=== PATIENT | female | born 1940 | race Caucasian/White ===

== ENCOUNTER 2016-09-18 06:12 | Outpatient (CLI) | payer MEDICARE, BC ==
[~2016-09-18 06:12] MED LIST: ASPIRIN81 MG ORAL; CHLORTHALIDONE25 MG; CRESTOR10 M1 ORAL; IBUPROFEN600 MG ORAL; KLONOPIN1 MG ORAL; LOSARTAN POTASS25 MG ORAL; METFORMIN HCL500 M1 ORAL; PAXIL10 MG/5 ML PO; PERCOCET 5-3251 EACH ORAL; PRECOSE50 MG ORAL; TOBRAMYCIN-DEXAM5 M1 RIGHT EYE; UNOBMED; VITAMIN D250000 UNI1 ORAL; ZOFRAN ODT4 MG ORAL
[2016-09-18 07:38] LABS: BASOPHILS % (AUTO) 0.9 % (0.0-2.0); EOSINOPHILS % (AUTO) 3.8 % (0.0-3.0); MEAN CORPUSCULAR HEMOGLOBIN 29.1 PG (27.0-31.0); MEAN CORPUSCULAR HGB CONC 32.1 G/DL (32.0-36.0); MEAN CORPUSCULAR VOLUME 90 FL (80-99); MEAN PLATELET VOLUME 7.7 FL (6.5-10.1); MONOCYTES % (AUTO) 6.4 % (1.0-10.0); PLATELET COUNT 180 K/UL (150-450); RED CELL DISTRIBUTION WIDTH 13.1 % (11.6-14.8); WHITE BLOOD COUNT 8.1 K/UL (4.8-10.8)
[2016-09-18 07:50] LABS: ALANINE AMINOTRANSFERASE 17 U/L (3-33); ALBUMIN/GLOBULIN RATIO 1.4 (1.0-2.7); ANION GAP 11 (5-15); ASPARTATE AMINO TRANSFERASE 16 U/L (5-40); CALCIUM 9.9 mg/dL (8.6-10.2); CARBON DIOXIDE 29 mEQ/L (20-30); CHLORIDE 99 mEQ/L (98-107); CHOLESTEROL 122 mg/dL (< 200); CHOLESTEROL/HDL RATIO 2.8 (3.3-4.4); CRP QUANT 0.4 mg/dL (< 0.5); HEMOLYSIS 6; LDL CHOLESTEROL (CALC.) 53 mg/dL (60-99); POTASSIUM 4.4 mEQ/L (3.4-4.9); SODIUM 139 mEQ/L (135-145); URIC ACID 5.7 mg/dL (3.0-7.5)
[2016-09-18 08:00] LABS: APPEARANCE,URINE SLIGHTLY CLOUDY; KETONES,URINE NEGATIVE (NEGATIVE); LEUKOCYTE ESTERASE ,URINE 2+ (NEGATIVE); NITRITE,URINE POSITIVE (NEGATIVE); PH,URINE 5 (4.5-8.0); PROTEIN,URINE 2+ (NEGATIVE); UROBILINOGEN,URINE 1 MG/DL (0.0-1.0)
[2016-09-18 08:47] LABS: BACTERIA,URINE MODERATE /HPF; SQUAMOUS EPITHELIAL CELL,UR FEW /LPF (NONE/OCC)
[2016-09-18 08:48] LABS: HEMOGLOBIN A1C 5.9 % (< 6.0)
[2016-09-18 09:44] LABS: ERYTHROCYTE SEDIMENTATION RATE 44 MM/HR (0-30)
== END 2016-09-18 07:42 | disposition home or self-care (01) ==
LOC: LAB 06:12
DX: R03.0 Elevated blood-pressure reading, without diagnosis of hypertension (principal); E34.9 Endocrine disorder, unspecified
CPT/HCPCS: 36415; 80053; 80061; 81001; 82306; 83036; 84436; 84443; 84550; 85025; 85651; 86140; 87086; 87181

== ENCOUNTER 2017-09-15 21:19 | Inpatient (IN) | payer MEDICARE, BC ==
[~2017-09-15] VITALS: Ht 177.8 cm; Wt 108.9 kg
[2017-09-15] MEDS ORDERED: Isovue-300 100ml vial INJ PRN (22:00)
[2017-09-15] MEDS ORDERED: Morphine Sulfate 4mg/ml Inj IVP ONE (22:15)
[2017-09-15 22:28] LABS: HEMATOCRIT 44.9 % (37.0-47.0); HEMOGLOBIN 15.4 G/DL (12.0-16.0); MEAN CORPUSCULAR VOLUME 87 FL (80-99); PLATELET COUNT 198 K/UL (150-450); RED BLOOD COUNT 5.17 M/UL (4.20-5.40); RED CELL DISTRIBUTION WIDTH 12.2 % (11.6-14.8); WHITE BLOOD COUNT 16.9 K/UL (4.8-10.8)
[2017-09-15 22:34] LABS: ANION GAP 12 mmol/L (5-15); BLOOD UREA NITROGEN 19 mg/dL (7-18); CALCIUM 9.8 MG/DL (8.5-10.1); CARBON DIOXIDE 25 MMOL/L (21-32); CHLORIDE 102 MMOL/L (98-107); CREATININE 1.4 MG/DL (0.55-1.30); SODIUM 139 MMOL/L (136-145)
[2017-09-15 22:38] LABS: ALANINE AMINOTRANSFERASE 39 U/L (12-78); ALBUMIN/GLOBULIN RATIO 0.9 (1.0-2.7); ALKALINE PHOSPHATASE 78 U/L (46-116); ASPARTATE AMINO TRANSFERASE 21 U/L (15-37); BILIRUBIN,TOTAL 0.7 MG/DL (0.2-1.0)
[2017-09-15 23:54] LABS: BILIRUBIN, URINE NEGATIVE (NEGATIVE); COLOR,URINE PALE YELLOW; GLUCOSE, URINE (UA) 3+ (NEGATIVE); KETONES,URINE 1+ (NEGATIVE); LEUKOCYTE ESTERASE ,URINE 1+ (NEGATIVE); NITRITE,URINE NEGATIVE (NEGATIVE); PH,URINE 6.5 (4.5-8.0); PROTEIN,URINE 4+ (NEGATIVE); UROBILINOGEN,URINE NORMAL MG/DL (0.0-1.0)
[2017-09-16 00:09] LABS: APPEARANCE,URINE SLIGHTLY CLOUDY
[2017-09-16] MEDS ORDERED: cefTRIAXone 1 GM in NS 55 ML IVPB SCH (00:45)
--- NOTE | 2017-09-16 00:45 | Emergency Room Report ---
History of Present Illness General Chief Complaint: Abdominal Pain Source: Patient Present Illness HPI 71 yo female presents with abdominal pain and vomiting multiple episodes She has history of hypertension, prediabetes, hyperlipidemia, and a cholecystectomy She reports painting on for a couple of days, she denies any changes in bowel habits or fevers She does report the pain radiates to her left back Allergies: Coded Allergies: No Known Allergies (Unverified , 07/16/14) Patient History Past Medical History: see triage record Last Menstrual Period: NA Now: No Reviewed Nursing Documentation: PMH: Agreed; PSxH: Agreed Nursing Documentation-PMH Hx Cardiac Problems: Yes Hx Hypertension: Yes Hx Diabetes: Yes Hx Cancer: Yes Hx Gastrointestinal Problems: No - gallblader removed Hx Neurological Problems: No Review of Systems All Other Systems: negative except mentioned in HPI Physical Exam Vital Signs Date Time Temp Pulse Resp B/P (MAP) Pulse Ox O2 Delivery O2 Flow Rate FiO2 09/15/17 21:26 98.1 103 18 175/81 98 Room Air 98.1 Sp02 EP Interpretation: reviewed, normal General Appearance: alert, non-toxic, mild distress Head: normocephalic Eyes: bilateral eye normal inspection, bilateral eye PERRL, bilateral eye EOMI ENT: normal ENT inspection, hearing grossly normal, normal pharynx, no angioedema, normal voice, moist mucus membranes Neck: normal inspection, full range of motion, supple, supple/symm/no masses Respiratory: chest non-tender, lungs clear, normal breath sounds, chest symmetrical, palpation of chest normal Cardiovascular #1: normal peripheral pulses, regular rate, rhythm Cardiovascular #2: 2+ radial (R), 2+ radial (L) Gastrointestinal: normal inspection, non tender, soft, no mass, no guarding, no rebound Rectal: deferred Genitourinary: normal inspection, no CVA tenderness Musculoskeletal: back normal, gait/station normal, normal range of motion, non- tender, no calf tenderness Neurologic: alert, responsive, visiting teacher III-XII nml as tested, motor strength/tone normal, sensory intact, speech normal Psychiatric: judgement/insight normal, memory normal, mood/affect normal, no suicidal/homicidal ideation Skin: normal color, no rash, warm/dry, normal turgor Lymphatic: no adenopathy Medical Decision Making Diagnostic Impression: Primary Impression: Kidney stone on left side ER Course Patient admitted for kidney stone, given antibiotics Urine with only 2-4 white blood cells, however patient very symptomatic with nausea and pain, as well as vomiting, will admit for pain control and nausea control EKG Diagnostic Results EKG Time: 00:41 EP Interpretation: no st-t changes or twi Rate: normal Rhythm: NSR ST Segments: no acute changes Rhythm Strip Diag. Results Rhythm Strip Time: 00:37 EP Interpretation: yes Rate: 85 Rhythm: NSR, no PVC's, no ectopy CT/MRI/US Diagnostic Results CT/MRI/US Diagnostic Results : Imaging Test Ordered: ct abd/pelvis Impression L mid ureteral stone, +hydronephrosis and hydroureter Last Vital Signs Date Time Temp Pulse Resp B/P (MAP) Pulse Ox O2 Delivery O2 Flow Rate FiO2 09/15/17 22:22 98.1 09/15/17 21:26 103 18 175/81 98 Room Air Disposition: ADMITTED INPATIENT Condition: Stable Referrals: Barron Lyle MD (PCP) LACIE FORREST M.D September 16, 2017 00:45
[2017-09-16 01:00] VITALS: BP 148/92
[2017-09-16 03:49] VITALS: BP 143/89
[2017-09-16] MEDS ORDERED: Morphine Sulfate 4mg/ml Inj IVP PRN (05:15)
[2017-09-16] MEDS: D5 1/2NS 1,000 ML IV SCH ×3 (05:46→16:19)
[2017-09-16 08:38] LABS: APPEARANCE,URINE TURBID; BILIRUBIN, URINE NEGATIVE (NEGATIVE); COLOR,URINE PALE YELLOW; GLUCOSE, URINE (UA) 2+ (NEGATIVE); KETONES,URINE NEGATIVE (NEGATIVE); LEUKOCYTE ESTERASE ,URINE 1+ (NEGATIVE); NITRITE,URINE NEGATIVE (NEGATIVE); PH,URINE 6 (4.5-8.0); PROTEIN,URINE 4+ (NEGATIVE); UROBILINOGEN,URINE NORMAL MG/DL (0.0-1.0)
[2017-09-16 09:00] VITALS: BP 160/90
[2017-09-16] MEDS: Pantoprazole Inj IVP SCH (09:50)
[2017-09-16] MEDS ORDERED: Losartan 50mg tab ORAL SCH (10:45)
[2017-09-16] MEDS: Aspirin Baby 81mg ORAL SCH (10:59)
[2017-09-16] MEDS: Heparin 5000 units/ml inj SUBQ SCH ×2 (11:11→21:00)
[2017-09-16 11:44] LABS: BASOPHILS % (AUTO) 0.7 % (0.0-2.0); EOSINOPHILS % (AUTO) 0.1 % (0.0-3.0); HEMATOCRIT 45.9 % (37.0-47.0); HEMOGLOBIN 15.2 G/DL (12.0-16.0); LYMPHOCYTES % (AUTO) 7.5 % (20.0-45.0); MEAN CORPUSCULAR VOLUME 88 FL (80-99); MONOCYTES % (AUTO) 7.2 % (1.0-10.0); NEUTROPHILS % (AUTO) 84.6 % (45.0-75.0); PLATELET COUNT 210 K/UL (150-450); RED BLOOD COUNT 5.21 M/UL (4.20-5.40); RED CELL DISTRIBUTION WIDTH 12.1 % (11.6-14.8); WHITE BLOOD COUNT 16.9 K/UL (4.8-10.8)
[2017-09-16 11:53] LABS: ANION GAP 8 mmol/L (5-15); BLOOD UREA NITROGEN 19 mg/dL (7-18); CALCIUM 9.5 MG/DL (8.5-10.1); CARBON DIOXIDE 29 MMOL/L (21-32); CHLORIDE 102 MMOL/L (98-107); CREATININE 1.6 MG/DL (0.55-1.30); POTASSIUM 4.3 MMOL/L (3.5-5.1); SODIUM 139 MMOL/L (136-145)
[2017-09-16 12:00] VITALS: BP 161/95
--- NOTE | 2017-09-16 12:27 | Diagnostic Imaging Report ---
Indication: Abdominal pain, nausea Technique: Spiral acquisitions obtained through the abdomen and pelvis. No oral contrast utilized, per emergency room physician request No IV contrast utilized, per emergency room physician request.. Multiplanar reconstructions were generated. Total dose length product 969.76 mGycm. CTDIvol(s) 19.07 mGy. Dose reduction achieved using automated exposure control Comparison: 05/23/2014 Findings: There is a 4 mm calculus within the proximal left ureter. There is mild left hydronephrosis, and extensive perinephric fat stranding and fluid. No intrarenal calculi are demonstrated. There is questionably a nonobstructive calyceal calculus. Previously demonstrated left renal cysts are less well-visualized on the current study, and evaluation is limited by the absence of IV contrast. There is a 13 mm exophytic lesion coming off of the lower pole of the right kidney which was evident previously but demonstrates nonspecific soft tissue attenuation. It is equivocally slightly increased in size from the prior study. Lack of IV contrast limits assessment of the other solid organs. The liver demonstrates some capsular calcifications. There is evidence of interim cholecystectomy. The extra hepatic bile ducts are dilated, common hepatic duct measuring up to 19 mm, without evidence of downstream obstructive lesion. The pancreas, spleen, adrenals are unremarkable. No retroperitoneal or mesenteric mass or adenopathy. No pelvic mass or adenopathy. The uterus is absent, presumably postsurgically. There is colonic diverticulosis. No evidence of diverticulitis. The appendix is normal. No small bowel distention. There is a tiny fat-containing umbilical hernia again demonstrated. There is minimal atelectasis or scarring at the left lung base. The bones are unremarkable. Impression: Positive for 4 mm proximal left ureteral calculus. Resultant left hydronephrosis and extensive perinephric fat stranding and fluid Possible small nonobstructive left renal calyceal calculus Right renal lesion demonstrates nonspecific soft tissue attenuation. However, MRI of 2014 indicated that this is a cyst. Interim cholecystectomy. Dilated extra hepatic bile ducts without evidence of downstream obstructive lesion. Most likely on basis of age and postcholecystectomy state. Correlation with liver function tests is recommended Colonic diverticulosis. No evidence of diverticulitis Other findings as noted, including evidence of prior hysterectomy, fat-containing umbilical hernia, left basilar scarring and/or atelectasis This agrees with the preliminary interpretation provided overnight by [facility] teleradiology service, with additional nonsignificant findings as described above. The CT scanner at [facility] is accredited by the [employer] and the scans are performed using protocols designed to limit radiation exposure to as low as reasonably achievable to attain images of sufficient resolution adequate for diagnostic evaluation.
[2017-09-16] MEDS: metFORMIN 500mg tab ORAL SCH ×2 (13:17→17:02)
[2017-09-16] MEDS: Precose 50mg tab ORAL SCH ×2 (13:17→17:02)
[2017-09-16 16:00] VITALS: BP 154/74
--- NOTE | 2017-09-16 17:29 | Diagnostic Imaging Report ---
Indication: Vomiting, abnormal lipase, history of prior cholecystectomy Technique: Vasquez-scale and duplex images of the upper abdomen were obtained Comparison: 07/16/2014. Also CT scan 09/15/2017 Findings: Gallbladder has been removed since the prior study Common bile duct measures 18 mm in diameter. No intrahepatic biliary ductal dilatation. Liver demonstrates diffusely increased echogenicity, consistent with diffuse hepatocellular disease, most likely fatty change. Portal vein and hepatic veins are patent. Pancreas is unremarkable. Spleen is unremarkable. Left kidney measures 12.9 cm in length. Right kidney measures 12.1 cm length. Both kidneys demonstrate normal echogenicity. There is imxe-so-emztdogm left hydronephrosis. Proximal right ureteral calculus described on recent CT is not demonstrated. There are small bilateral renal cysts. Bladder demonstrates 534 mm prevoid volume, 266 mL postvoid volume. Non-aneurysmal abdominal aorta . Impression: Mild to moderate left hydronephrosis, concordant with findings reported on recent CT scan and due to sonographically occult proximal ureteral calculus Interim cholecystectomy. Extrahepatic biliary ductal dilatation, also described on recent CT scan. Most likely related to age and postcholecystectomy state, but occult downstream obstruction also possible Liver demonstrates diffusely increased echogenicity, consistent with diffuse hepatocellular disease, consistent with fatty change demonstrated on recent CT. Distended bladder both prevoid and postvoid Incidental finding small bilateral renal cysts
[2017-09-16] MEDS: HYDROmorphone 4mg tab ORAL PRN (18:42)
[2017-09-16 20:00] VITALS: BP 140/86
[2017-09-16] MEDS ORDERED: cefTRIAXone 1 GM in D5W 55 ML IVPB SCH (21:00)
--- NOTE | 2017-09-17 01:00 | History and Physical Report ---
DATE OF ADMISSION: 09/16/2017 REASON FOR ADMISSION: This is one of several admissions to [facility] of this 77-year-old patient because of nephrolithiasis. HISTORY OF PRESENT ILLNESS: The patient in a stable condition and residing in her home where she developed a sudden onset of severe left flank pain radiating to groin and into her vagina and the pain became intolerable. She came to [facility] ER where assessment revealed the patient to have a kidney stone. She underwent imaging studies of the abdomen and pelvis as well as blood and urine tests and was admitted. PAST MEDICAL HISTORY AND SURGERY: The patient underwent hysterectomy many years ago and cholecystectomy a few years ago in this hospital. Medically, she is known to have high blood pressure for the last 20 years and diabetes mellitus for the last 15 years. She has gastroesophageal reflux disease. She has hyperlipidemia and hypervitaminosis D. MEDICATIONS: The patient is on losartan 100 mg daily, she is on metformin 500 mg t.i.d., she is on pantoprazole 40 mg daily, she is on cholecalciferol 5000 units daily, and rosuvastatin 10 mg daily. ALLERGIES: No known drug allergies. FAMILY HISTORY: No medical history of kidney stones in the family. Her father at the age of 79 from an acute [place] and mother at age of 79 from metastatic disease of CA of the colon. She has one sister in good health. Her mother of CA of the pancreas. SOCIAL HISTORY: She is single. She was born in [place]. She . She has no children. HABITS: The patient does not smoke, drink, or use illicit drugs. REVIEW OF SYSTEMS: CARDIOVASCULAR: The patient denied any chest pain, shortness of breath, palpitations, or dizziness. PULMONARY: The patient denied any cough, wheezing, or expectoration. GASTROINTESTINAL: Her appetite is moderate. Her weight is stable. She has no dysphagia or dyspepsia. No bowel movement disorder. GENITOURINARY: The patient denies any dysuria, frequency, incontinence, or nocturia. Current episode of kidney stone. JOINTS: The patient denies any pain, swelling, stiffness, cold extremities, photosensitivity, dry eyes, or alopecia. CENTRAL NERVOUS SYSTEM: Her sleep is of good quality. She has no numbness, tingling, seizure disorder, and has no headache. PHYSICAL EXAMINATION: VITAL SIGNS: Blood pressure is 154/74, pulse 106, respirations were 18, temperature 98.2 degrees. HEENT: Eyes were normal. Pupils were round, equal, and reacting to light. Sclerae was white. Conjunctiva was pink. Extraocular movements were normal. Temporal arteries were palpable bilaterally. There was no bilateral temporal wasting. Visual chowdhury to confrontation were normal and neglect sign was negative. ENT, mucous membranes were not dehydrated. Auditory canals were clear and tympanic membranes could not be visualized. Nasal cavity was not congested. Nasal septum was intact. Soft palate was free of ulceration. Pharynx was clear from exudate or tonsillar hypertrophy. Uvula ghassan to phonation. Tongue was moist, midline, and normally papillated. NECK: Supple. There was no goiter. No mass. No lymphadenopathy. There was no JVD. No bruits. Carotid upstroke was 2+. LUNGS: Clear. HEART: PMI was in the fifth left intercostal space in midclavicular line. There was normal S1 and normal S2. There was no murmur. No arrhythmia. No S3. No S4. No pericardial rub. ABDOMEN: Soft, obese, nontender without organomegaly. There were no masses palpable. Normal bowel sounds without bruits. There was no goiter. No rebound tenderness. No ascites. No hernia. There was left CVA tenderness. Liver span was 8 cm, mostly nontender. EXTREMITIES: No cyanosis, no clubbing, and no edema. Extremities were warm. NEUROLOGICAL: Reflexes in biceps, triceps, and brachioradialis were present. Patellar retinaculum was present. Plantar were in flexion. Cranial nerves from II through XII were symmetric and equal. Cerebellar function, gait, [id number] rapid alternating movements, and Romberg sign was not performed by the patient. There was no tremor. No nystagmus. No extrapyramidal rigidity. Sensory exam to pinprick, cotton touch, and position are grossly normal. Motor strength was 5/5 against resistance in upper and lower extremities in proximal and distal muscles. LABORATORY AND DIAGNOSTIC DATA: Hemoglobin is 15.2, hematocrit 45.9 with MCV of 88, WBC of 16.9, and platelets is 210. Her BUN and creatinine is 19 and 1.6 respectively. Her sodium is 139, potassium 4.3, chloride 102, CO2 was 29, and glucose is 184. Her calcium was 9.5. Her troponin was not detected. Her lipase was 186 and urinalysis show urine protein was 4+, urine glucose was 2+, urine ketone was negative, urine blood was 5+, urine nitrate, bilirubin and urobilinogen were normal, wbc's 5 to 10, rbc's too numerous to count. CT scan of the abdomen and pelvis without contrast reveal a 4 mm calculus in the proximal left ureter associated with left hydronephrosis with extensive perinephric fat stranding noted. Other finding was normal ileum status post cholecystectomy, status post hysterectomy, normal common bile duct, colonic diverticulosis, possible small nonobstructive left renal calyceal calculus. In addition, there is an umbilical hernia besides this contained fat and left basilar atelectasis. PLAN: The current study was done without contrast. Repeat CT scan of the abdomen and pelvis with IV contrast will be requested. Urology consult will be called to assist in the management of this case. CBC and BMP will be requested as well. Barron Lyle M.D. DR: PAULIE JOB#: [id number] CC:
[2017-09-17] MEDS: HYDROmorphone 4mg tab ORAL PRN ×2 (02:17→09:00)
[2017-09-17 04:00] VITALS: BP 164/96
[2017-09-17] MEDS: D5 1/2NS 1,000 ML IV SCH (05:50)
[2017-09-17 08:00] VITALS: BP 147/87
[2017-09-17 08:11] LABS: BASOPHILS % (AUTO) 0.6 % (0.0-2.0); EOSINOPHILS % (AUTO) 0.3 % (0.0-3.0); HEMATOCRIT 44.7 % (37.0-47.0); LYMPHOCYTES % (AUTO) 10.4 % (20.0-45.0); MEAN CORPUSCULAR VOLUME 89 FL (80-99); MONOCYTES % (AUTO) 7.9 % (1.0-10.0); NEUTROPHILS % (AUTO) 80.9 % (45.0-75.0); PLATELET COUNT 185 K/UL (150-450); RED BLOOD COUNT 5.05 M/UL (4.20-5.40); RED CELL DISTRIBUTION WIDTH 12.2 % (11.6-14.8); WHITE BLOOD COUNT 15.6 K/UL (4.8-10.8)
[2017-09-17 08:32] LABS: ANION GAP 9 mmol/L (5-15); BLOOD UREA NITROGEN 18 mg/dL (7-18); CALCIUM 9.3 MG/DL (8.5-10.1); CARBON DIOXIDE 28 MMOL/L (21-32); CHLORIDE 100 MMOL/L (98-107); CREATININE 1.8 MG/DL (0.55-1.30); SODIUM 137 MMOL/L (136-145)
[2017-09-17] MEDS: Pantoprazole Inj IVP SCH (08:33)
[2017-09-17] MEDS: Aspirin Baby 81mg ORAL SCH (08:33)
[2017-09-17] MEDS: Precose 50mg tab ORAL SCH ×3 (08:34→17:24)
[2017-09-17] MEDS: metFORMIN 500mg tab ORAL SCH ×3 (08:34→17:24)
[2017-09-17] MEDS: Heparin 5000 units/ml inj SUBQ SCH (08:37)
[2017-09-17] MEDS ORDERED: Losartan 50mg tab ORAL SCH (09:00)
[2017-09-17 12:00] VITALS: BP 149/79
--- NOTE | 2017-09-17 12:43 | Cardiology Report ---
APPROVED REPORT EKG Measurement Heart [id number] Sinus rhythm with premature atrial complexes Left axis deviation Nonspecific ST and T wave abnormality Prolonged QT Abnormal ECG
--- NOTE | 2017-09-17 13:46 | Consultation ---
DATE OF CONSULTATION: 09/17/2017 CONSULTING PHYSICIAN: Erik Silver M.D. REFERRING PHYSICIAN: Barron Lyle M.D. REASON FOR CONSULTATION: Evaluation of renal colic. HISTORY OF PRESENT ILLNESS: This is a pleasant 77-year-old female. She came to the hospital because of acute onset of left flank pain. The patient had a workup including CT scan that showed a 4 mm left ureteral calculus. Urology evaluation is requested. Overall, she is feeling better. Her pain is less. She does have some vague lower back pain which is bilateral. She does have some urinary frequency. PAST MEDICAL HISTORY: Significant for history of high blood pressure, diabetes. She has hyperlipidemia and gastroesophageal reflux disease. PAST SURGICAL HISTORY: She has had a hysterectomy, cholecystectomy. CURRENT MEDICATIONS: In the hospital, the patient is on Cozaar, Rocephin, Dilaudid, Precose, Glucophage, heparin, aspirin, Klonopin, Protonix, Zofran. ALLERGIES: No known drug allergies. SOCIAL HISTORY: She is a travel registered nurse pacu. She is a nonsmoker. REVIEW OF SYSTEMS: As above. FAMILY HISTORY: Noncontributory. PHYSICAL EXAMINATION: GENERAL: An elderly female, slightly obese, no acute distress. VITAL SIGNS: Temperature is 97.7 degrees, blood pressure 164/96, pulse is 95. HEENT: Normocephalic. NECK: Supple. ABDOMEN: Soft. Back was minimal CVA tenderness. EXTREMITIES: No clubbing or cyanosis. LABORATORY DATA: Her UA on admit showed 4+ protein, too numerous to count RBCs, 2 to 4 WBCs. Follow up UA showed 5 to 10 WBCs. There is no recent urine culture. Her white count is 16.9, hemoglobin 15.2. BUN is 19, creatinine 1.6, potassium 4.3. DIAGNOSTIC IMAGING STUDIES: The patient had a CT scan of the abdomen and pelvis and there was mention of a 4 millimeter proximal left ureteral calculus with left hydronephrosis. There was also mention of a small nonobstructing left renal calculus. There was mention of a renal lesion possibly a cyst. She also had an abdominal ultrasound, which showed [id number] left hydronephrosis. IMPRESSION: 1. A 4 millimeter left ureteral calculus. 2. Hydronephrosis. 3. Renal colic. 4. Hematuria. 5. Pyuria. 6. Proteinuria. 7. Acute kidney injury. 8. Neurogenic bladder. 9. Urinary frequency. 10. Renal cyst. PLAN AND DISCUSSION: Again, the patient does have a 4 mm stone of the left proximal ureter with hydronephrosis. She did have flank pain which is slowly improving. I did have a long discussion with her about management options. At this time, she wants to see if she can pass the stone. As such, we will give her a trial of passage. I will add Flomax 0.4 mg daily. Her urine will be strained. If she is unable to pass the stone and has had increased flank pain at some point, she may need to have endoscopic extraction. This was discussed with the patient and explained in detail. Thank you, Dr. Lyle, for asking me to see this patient in consultation. Erik Silver M.D. DR: MARCY JOB#: [id number] CC:
[2017-09-17] MEDS ORDERED: D5 1/2NS 1000ml IV ONE ×2 (15:13→15:18)
[2017-09-17] MEDS ORDERED: Tubing IV Secondary IV ONE (15:18)
[2017-09-17 15:50] VITALS: BP 144/89
[2017-09-17] MEDS ORDERED: NORCO 10-325 T1 EACH ORAL (18:21)
[2017-09-17] MEDS ORDERED: LEVAQUIN750 MG ORAL (18:21)
[2017-09-17] MEDS ORDERED: Tamsulosin 0.4mg cap ORAL SCH (21:00)
--- NOTE | 2017-09-20 13:50 | Discharge Summary ---
Discharge Summary Discharge Summary _ DATE OF ADMISSION: 09/16/2017 DATE OF DISCHARGE: 09/17/2017 REASON FOR ADMISSION: 77 years old female with past medical history significant for hypertension, diabetes, hyperlipidemia, s/p cholecystectomy, presented to emergency department due to the acute onset of left flank pain. Patient was afebrile. Blood pressure was elevated 175/81 due to pain , and patient was slightly tachycardic 103. EKG reveals sinus tachycardia with heart rate 103. BUN 19 creatinine 1.4. WBC 16.9. Hemoglobin and hematocrit stable. Glucose 225. Troponin negative. LFT, bilirubin, lipase all within normal limits. Urinalysis with evidence of hematuria, proteinuria, no evidence of infection. CT of the abdomen and pelvis which was done without IV contrast, revealed 4 mm proximal left ureteral calculi with resultant left hydronephrosis and extensive perinephric fat stranding and fluid. Dilated extrahepatic bile ducts noted without evidence of downstream obstructive lesion, most likely on basis of age and postcholecystectomy state. Colonic diverticulosis with no evidence of diverticulitis. Patient was admitted with diagnosis of left ureteral calculi with left hydronephrosis,renal colic, acute kidney injury. CONSULTANTS: Urologist [facility] COURSE: Patient was admitted to medical surgical floor. Patient was started on the generous IV hydration. Pain management was addressed. Urology consult was requested. Different options regarding management of ureteral calculus were discussed with the patient. At this point patient opted for trial of passing the stone. All urine was strained. Flomax was added to existing regimen. Of note, CT abdomen and pelvis done without IV contrast due to acute kidney injury, likely due to stone and hydronephrosis, Blood pressure was managed with angiotensin receptor breanna and remained stable. DVT and GI prophylaxis provided. Antiemetics provided as needed. Patient was able to tolerate her diet. Home medications were resumed. Precose was continued. . Patient requested to go home. Pain controlled. She desired trial of passing stone. Patient was stable for discharge. Patient was instructed if unable to pass stone and had increased flank pain, she may need endoscopic extraction, and need to come to ED for further evaluation. . Due to rapid and expected improvement in patient's condition , patient was discharged in one day FINAL DIAGNOSES: Left ureteral calculi Left hydronephrosis Renal colic Hematuria Acute kidney injury Proteinuria Pyuria Neurogenic bladder DISCHARGE MEDICATIONS: See Medication Reconciliation list. DISCHARGE INSTRUCTIONS: Patient was discharged home. Patient opted for trial of passing the stone. Pain controlled. Strain all urine ( strainer provided upon discharge) . Patient was instructed to come to emergency department if unable to pass stone and flank pain increased and uncontrolled. Follow up with primary care provider in 2-3 days . I have been assigned to dictate discharge summary for this account. I was not involved in the patient's management. Keren Looney NP September 20, 2017 13:50
== END 2017-09-17 18:45 | disposition home or self-care (01) | DRG 694 ==
LOC: EMR 22:06 → 4W 09-16 00:50 → EDBEDREQ 09-16 02:23
DX: N13.2 Hydronephrosis with renal and ureteral calculous obstruction (principal); K21.9 Gastro-esophageal reflux disease without esophagitis; E11.9 Type 2 diabetes mellitus without complications; I10 Essential (primary) hypertension; E78.5 Hyperlipidemia, unspecified; R31.9 Hematuria, unspecified; N28.1 Cyst of kidney, acquired; N31.9 Neuromuscular dysfunction of bladder, unspecified; N17.9 Acute kidney failure, unspecified; Z79.84 Long term (current) use of oral hypoglycemic drugs
CPT/HCPCS: 36415; 74176; 76700; 80048; 80053; 81001; 81003; 82962; 83690; 84484; 85007; 85025; 93005; 99285; J2405

== ENCOUNTER 2018-12-21 10:55 | Outpatient (CLI) | payer MEDICARE, BC ==
[~2018-12-21 10:55] MED LIST changes: +LEVAQUIN750 MG ORAL; +NORCO 10-325 T1 EACH ORAL
== END 2018-12-21 12:55 | disposition home or self-care (01) ==
LOC: VAS 10:55
DX: R60.0 Localized edema (principal)
CPT/HCPCS: 93970